=== PATIENT | female | born 1995 | race American Indian/Alaskan Native ===

== ENCOUNTER 2018-01-22 15:42 | Emergency (ER) | payer OTHER, MEDICAID ==
[2018-01-22 15:56] VITALS: BP 123/78
[2018-01-22] MEDS ORDERED: MOTRIN PO ONE (17:06)
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
== END 2018-01-22 18:37 | disposition home or self-care (01) ==
LOC: ED 15:42
DX: S39.012A Strain of muscle, fascia and tendon of lower back, initial encounter (principal); Z91.02 Food additives allergy status; V49.19XA Passenger injured in collision with other motor vehicles in nontraffic accident, initial encounter; Y93.89 Activity, other specified; Y99.8 Other external cause status; Y92.488 Other paved roadways as the place of occurrence of the external cause
CPT/HCPCS: 99282